=== PATIENT | male | born 1980 | race Caucasian/White ===

== ENCOUNTER 2017-12-01 13:04 | Emergency (ER) | payer SELFPAY ==
[~2017-12-01] VITALS: Ht 185.4 cm; Wt 81.5 kg
[2017-12-01 13:08] VITALS: BP 150/85
== END 2017-12-01 13:40 | disposition left against medical advice (07) ==
LOC: EMS 13:05
DX: Z00.8 Encounter for other general examination (principal); F17.210 Nicotine dependence, cigarettes, uncomplicated; Z53.21 Procedure and treatment not carried out due to patient leaving prior to being seen by health care provider